=== PATIENT | female | born 1935 | race Caucasian/White ===

== ENCOUNTER → 2023-03-15 11:37 | Outpatient (REF) | payer OTHER, SELFPAY ==
[2023-03-15 13:51] LABS: Free T4 1.72 ng/dl (0.78-2.19)
[2023-03-15 14:05] LABS: TSH 0.31 uIU/ml (0.47-4.68)
== END ==
LOC: OLABPV 11:37
PROVIDERS: ATTENDING PHYSICIAN Internal Medicine Geriatric Medicine
DX: E03.9 Hypothyroidism, unspecified (principal)
CPT/HCPCS: 36415; 84439; 84443